=== PATIENT | female | born 1965 | race Caucasian/White ===

== ENCOUNTER 2024-05-17 08:04 | Day surgery (SDC) | payer OTHER ==
[2024-05-12 11:54] LABS: BASOPHILS # (AUTO) 0.1 X10'3 (0-0.2); BASOPHILS % (AUTO) 0.6 % (0-1); EOSINOPHILS # (AUTO) 0.1 X10'3 (0-0.9); LYMPHOCYTES # (AUTO) 2.4 X10'3 (1.1-4.8); LYMPHOCYTES % (AUTO) 24.9 % (21-51); MEAN CORPUSCULAR HGB CONC 33.1 g/dL (33.0-36.5); MEAN CORPUSCULAR VOLUME 87.7 FL (78-98); MEAN PLATELET VOLUME 7.6 FL (7.4-10.4); MONOCYTES # (AUTO) 0.5 X10'3 (0-0.9); NEUTROPHILS # (AUTO) 6.6 X10'3 (1.8-7.7); NEUTROPHILS % (AUTO) 68.5 % (42-75); PRE OP HEMATOCRIT 42.9 % (35.0-45.0); PRE OP HEMOGLOBIN 14.2 g/dL (12.0-16.0); PRE OP PLATELET COUNT 323 X10'3 (140-440); PRE OP WHITE BLOOD COUNT 9.6 10'3 (4.8-10.8); RED CELL DISTRIBUTION WIDTH 15.5 % (11.5-14.5)
[2024-05-12 12:12] LABS: ALBUMIN 3.7 G/DL (3.4-5.0); BLOOD UREA NITROGEN 15 MG/DL (7-18); BUN/CREATININE RATIO 14.6 (10.0-20.0); CALCIUM 9.4 MG/DL (8.5-10.1); CHLORIDE 105 MMOL/L (99-107); CREATININE 1.03 MG/DL (0.40-0.90); PRE OP ANION GAP 6 (8-16); PRE OP BILIRUB, TOTAL 0.6 MG/DL (0.0-1.0); PRE OP GLUCOSE 104 MG/DL (70-104); PRE OP POTASSIUM 4.2 MMOL/L (3.4-5.1); PRE OP SODIUM 138 MMOL/L (135-145); TOTAL CARBON DIOXIDE 26.6 MMOL/L (24-32); TOTAL PROTEIN 7.8 G/DL (6.4-8.2); eGFR 55 ML/MIN
[2024-05-12 12:13] LABS: ALBUMIN/GLOBULIN RATIO 0.9 (1.1-1.5); ALKALINE PHOSPHATASE 108 IU/L (46-116); PRE OP ALT 36 U/L (30-65); PRE OP AST 17 U/L (10-37)
[~2024-05-17] VITALS: Ht 167.6 cm; Wt 92.5 kg
[2024-05-17] VITALS (15 sets, daily range): BP systolic 104–140; BP diastolic 63–85; PULSE 60–86; RESP 13–19; TEMP 98.2; O2SAT 92–100
[2024-05-17] MEDS: famotidine 20mg tablet PO ONE (05:30)
[2024-05-17] MEDS: ceFAZolin 2gm in dextrose, iso 50 ML IV ONE (05:30)
[~2024-05-17 08:04] MED LIST: BUPIVAcaine 2.5mg/ml inj 50ml vial (contains preservative) ONE; EMPA10TA PO; EPIN0.3A3 IM; FAMO20TA8 PO; GALC120P SQ; LIDOcaine 1% 30ml preserv. free vial ONE; LINA290C PO; LOSA50TA64 PO; MONT-40 PO; PANT40TA54 PO; PITA2TAB PO; ZOLP10TA PO
[2024-05-17] MEDS ORDERED: ondansetron/PF 4mg/2ml inj IV PRN (09:05)
[2024-05-17] MEDS ORDERED: labetalol 20mg/4ml (5mg/ml) syringe IV PRN (09:05)
[2024-05-17] MEDS ORDERED: morphine 4 MG/ML inj SYRINge IV PRN (09:05)
[2024-05-17] MEDS ORDERED: fentaNYL/PF 50MCG/1 ML 2ML syringe IV PRN ×2 (09:05)
[2024-05-17] MEDS ORDERED: hydrALAZINE 20mg/ml inj. IV PRN (09:05)
[2024-05-17] MEDS ORDERED: ringers solution, lacted 1,000 ML IV SCH (09:05)
[2024-05-17] MEDS: ringers solution, lacted 1,000 ML IV SCH (09:24)
[2024-05-17] MEDS: INDOCYANINE GREEN 25 MG/10 ML VIAL IV ONE (09:25)
[2024-05-17] MEDS ORDERED: sevoflurane 250ml liquid IH ONE (10:07)
[2024-05-17] MEDS ORDERED: LIDOcaine 2% (20mg/ml) 5ml vial ONE (10:24)
[2024-05-17] MEDS ORDERED: propofol inj 20 ML IV ONE (10:24)
[2024-05-17] MEDS ORDERED: midazolam 1 mg/ML 2ml injection ONE (10:24)
[2024-05-17] MEDS ORDERED: fentaNYL/PF 50MCG/1 ML 2ML syringe ONE (10:24)
[2024-05-17] MEDS ORDERED: rocuronium 10mg/ml inj IV ONE (10:25)
[2024-05-17] MEDS ORDERED: ondansetron/PF 4mg/2ml inj ONE (10:25)
[2024-05-17] MEDS ORDERED: glycopyrrolate 0.2mg/ml inj ONE (10:25)
[2024-05-17] MEDS ORDERED: neostigmine methylsulfate 1 MG/ML 10ml vial ONE (10:25)
[2024-05-17] MEDS: BUPIVAcaine 2.5mg/ml inj 50ml vial (contains preservative) IJ ONE (10:43)
[2024-05-17] MEDS ORDERED: labetalol 20mg/4ml (5mg/ml) syringe IV ONE (10:55)
[2024-05-17] MEDS ORDERED: oxyCODONE/APAP 5-325mg tablet PO PRN (11:50)
[2024-05-17] MEDS: morphine 2 MG/ML inj. syringe IV PRN (12:14)
== END 2024-05-17 14:21 | disposition home or self-care (01) ==
LOC: PAS 08:04
PROVIDERS: ATTEND Surgery
DX: K42.0 Umbilical hernia with obstruction, without gangrene (principal); K81.1 Chronic cholecystitis; K82.8 Other specified diseases of gallbladder; E78.5 Hyperlipidemia, unspecified; N18.30 Chronic kidney disease, stage 3 unspecified; E11.22 Type 2 diabetes mellitus with diabetic chronic kidney disease; I12.9 Hypertensive chronic kidney disease with stage 1 through stage 4 chronic kidney disease, or unspecified chronic kidney disease; Z88.8 Allergy status to other drugs, medicaments and biological substances; Z91.041 Radiographic dye allergy status; Z91.011 Allergy to milk products; Z90.710 Acquired absence of both cervix and uterus; Z98.890 Other specified postprocedural states; G43.909 Migraine, unspecified, not intractable, without status migrainosus; K21.9 Gastro-esophageal reflux disease without esophagitis; Z85.828 Personal history of other malignant neoplasm of skin
CPT/HCPCS: 36415; 47563; 49594; 80053; 82948; 85025; 93005; J0690; J1100; J2003; J2250; J2270; J2405; J2704; J2710; J3010; J3490; J7030; J7120; S2900; Z7506; Z7508; Z7512; A4215; A4618; A7000